=== PATIENT | female | born 1950 | race Caucasian/White ===

== ENCOUNTER → 2016-07-14 | Outpatient (CLI) | payer MEDICARE ==
--- NOTE | 2016-07-14 11:06 | MM ---
Reason for exam: history of breast cancer, conservation therapy. Last mammogram was performed 8 months ago. History: Patient is postmenopausal, has history of high-risk lesion on a previous biopsy at age 65, has history of other cancer at age 64, and has history of breast cancer at age 47. Family history of breast cancer in sister at age 56 and breast cancer in maternal aunt at age 60. High risk MG pre op needle loc LT of the left breast, January 07, 2016. Benign US biopsy breast VAD LT of the left breast, November 25, 2015. Radiation therapy of the right breast, April 2015. Malignant MG pre op needle loc RT of the right breast, February 27, 2015. Malignant US breast needle core RT of the right breast, December 17, 2014. Lumpectomy of the right breast, 2014. Lumpectomy of the left breast. Taking other hormone for 5 months. Physical Findings: Nurse did not find any significant physical abnormalities on exam. MG 3D Diag Mammo W/Cad BEATA Bilateral CC and MLO view(s) were taken. Prior study comparison: November 25, 2015, left breast MG diagnostic mammo LT wo CAD. November 09, 2015, bilateral MG 3d diag mammo w/cad BEATA. The breast tissue is heterogeneously dense. This may lower the sensitivity of mammography. No suspicious calcifications are seen. There is no discrete abnormality. No significant new findings when compared with previous films. These results were verbally communicated with the patient and result sheet given to the patient on 07/14/16. ASSESSMENT: Incomplete: need additional imaging evaluation, BI-RAD 0 RECOMMENDATION: Ultrasound of the left breast.
--- NOTE | 2016-07-14 11:07 | USB ---
Reason for exam: additional evaluation requested from abnormal screening. History: Patient is postmenopausal, has history of high-risk lesion on a previous biopsy at age 65, has history of other cancer at age 64, and has history of breast cancer at age 47. Family history of breast cancer in sister at age 56 and breast cancer in maternal aunt at age 60. High risk MG pre op needle loc LT of the left breast, January 07, 2016. Benign US biopsy breast VAD LT of the left breast, November 25, 2015. Radiation therapy of the right breast, April 2015. Malignant MG pre op needle loc RT of the right breast, February 27, 2015. Malignant US breast needle core RT of the right breast, December 17, 2014. Lumpectomy of the right breast, 2014. Lumpectomy of the left breast. Taking other hormone for 5 months. US Breast LT Left breast ultrasound includes all four quadrants, the retroareolar region and axilla. Finding demonstrates a 0.9 x 1.0 x 0.6cm oval, cluster, cystic lesion with dilated duct at 1 o'clock. These results were verbally communicated with the patient and result sheet given to the patient on 07/14/16. ASSESSMENT: Benign, BI-RAD 2 RECOMMENDATION: Follow-up diagnostic mammogram of both breasts in 1 year.
== END | disposition home or self-care (01) ==
LOC: RADMAMWWP 09:07
PROVIDERS: ATTEND Surgery
DX: R92.8 Other abnormal and inconclusive findings on diagnostic imaging of breast (principal)
CPT/HCPCS: 76641; G0204; G0279

== ENCOUNTER → 2017-06-14 | Outpatient (CLI) | payer MEDICARE ==
--- NOTE | 2017-06-14 13:16 | BD ---
EXAMINATION TYPE: MG DEXA axial skeleton. DATE OF EXAM: 06/14/2017 COMPARISON: NONE CLINICAL HISTORY: Height: 5 FT 2 IN Weight: 167 FRAX RISK QUESTIONS: Alcohol (3 or more units per day): NO Family History (Parent hip fracture): NO Glucocorticoids (More than 3mos): NO (Ex: prednisone, prednisolone, methylprednisolone, dexamethasone, and hydrocortisone). History of Fracture in Adulthood: NO Secondary Osteoporosis: 1. Type 1 Diabetes: NO 2. Hyperthyroidism: NO 3. Menopause before 45: YES 4. Malnutrition: NO 5. Chronic liver disease: NO Rheumatoid Arthritis: NO Current Tobacco Use: NO RISK FACTORS HISTORY OF: Active: YES Postmenopausal woman: PART HYST AGE 33 MEDICATIONS: Additional Medications: ZOLOFT, MIGRAINE MEDS, IMMATREX, ESTROGEN SONIDO, LIPITOR, Additional History: EXAM MEASUREMENTS: Bone mineral densitometry was performed using the [employer] System. Bone mineral density as measured about the Lumbar spine is: ----- L1-L4(G/cm2): 1.043 T Score Values are as follows: ----- L2: -1.5 ----- L3: -1.0 ----- L4: -0.6 ----- L1-L4: -1.1 Bone mineral density has: DECREASED -7.1 % since study of: 2015 Bone mineral density about the R hip (g/cm2): 0.843 Bone mineral density about the L hip (g/cm2): 0.827 T Score values are as follows: -----R Neck: -1.4 -----L Neck: -1.5 -----R Total: -0.2 -----L Total: -0.2 Bone mineral density has: DECREASED -5.3 % since study of: 2016 IMPRESSION: Osteopenia (T Score between -2.5 and -1). There is slightly increased risk of fracture and the patient may be considered for treatment. Re-Screen 2-5 years. NOTE: T-SCORE=SD OF THE YOUNG ADULT MEAN.
== END | disposition home or self-care (01) ==
LOC: RADBDWWP 09:43
PROVIDERS: ATTEND Internal Medicine Hematology & Oncology
DX: C50.411 Malignant neoplasm of upper-outer quadrant of right female breast (principal); M85.80 Other specified disorders of bone density and structure, unspecified site; N95.1 Menopausal and female climacteric states; Z79.890 Hormone replacement therapy
CPT/HCPCS: 77080

== ENCOUNTER → 2018-01-01 | Outpatient (CLI) | payer MEDICARE ==
--- NOTE | 2018-01-01 09:39 | MM ---
Reason for exam: additional evaluation requested from prior study. Last mammogram was performed 1 year ago. History: Patient has history of high-risk lesion on a previous biopsy at age 65, has history of other cancer at age 64, and has history of breast cancer at age 47. Family history of breast cancer in sister at age 56 and breast cancer in maternal aunt at age 60. High risk MG pre op needle loc LT of the left breast, January 07, 2016. Benign US biopsy breast VAD LT of the left breast, November 25, 2015. Radiation therapy of the right breast, April 2015. Malignant MG pre op needle loc RT of the right breast, February 27, 2015. Malignant US breast needle core RT of the right breast, December 17, 2014. Lumpectomy of the right breast, 2014. Lumpectomy of the left breast. Took hormonal contraceptives beginning at age 20. Taking antineoplastic beginning at age 65. Physical Findings: Nurse did not find any significant physical abnormalities on exam. MG 3D Diag Mammo W/Cad BEATA Bilateral CC and MLO view(s) were taken. Prior study comparison: December 30, 2016, bilateral MG 3d diag mammo w/cad BEATA. July 14, 2016, bilateral MG 3d diag mammo w/cad BEATA. The breast tissue is heterogeneously dense. This may lower the sensitivity of mammography. Stable benign calcifications. There is no discrete abnormality. Stable post lumpectomy changes right breast. No significant new findings when compared with previous films. These results were verbally communicated with the patient and result sheet given to the patient on 01/01/18. ASSESSMENT: Benign, BI-RAD 2 RECOMMENDATION: Follow-up diagnostic mammogram of both breasts in 1 year.
== END ==
LOC: RADMAMWWP 08:18
PROVIDERS: ATTEND Internal Medicine Hematology & Oncology
DX: Z08 Encounter for follow-up examination after completed treatment for malignant neoplasm (principal); Z85.3 Personal history of malignant neoplasm of breast
CPT/HCPCS: 77066; G0279; 77062

== ENCOUNTER → 2019-01-02 | Outpatient (CLI) | payer MEDICARE ==
--- NOTE | 2019-01-02 08:09 | MM ---
Reason for exam: additional evaluation requested from prior study. Last mammogram was performed 1 year ago. History: Patient has history of high-risk lesion on a previous biopsy at age 65, has history of other cancer at age 64, and has history of breast cancer at age 47. Family history of breast cancer in sister at age 56 and breast cancer in maternal aunt at age 60. High risk MG pre op needle loc LT of the left breast, January 07, 2016. Benign US biopsy breast VAD LT of the left breast, November 25, 2015. Radiation therapy of the right breast, April 2015. Malignant MG pre op needle loc RT of the right breast, February 27, 2015. Malignant US breast needle core RT of the right breast, December 17, 2014. Lumpectomy of the right breast, 2014. Lumpectomy of the left breast. Took hormonal contraceptives beginning at age 20. Taking antineoplastic beginning at age 65. Physical Findings: Nurse did not find any significant physical abnormalities on exam. MG 3D Diag Mammo W/Cad BEATA Bilateral CC and MLO view(s) were taken. Prior study comparison: January 01, 2018, bilateral MG 3d diag mammo w/cad BEATA. December 30, 2016, bilateral MG 3d diag mammo w/cad BEATA. There are scattered fibroglandular densities. Post surgical changes in the right breast. No significant new findings when compared with previous films. These results were verbally communicated with the patient and result sheet given to the patient on 01/02/19. ASSESSMENT: Benign, BI-RAD 2 RECOMMENDATION: Follow-up diagnostic mammogram of both breasts in 1 year.
== END | disposition home or self-care (01) ==
LOC: RADMAMWWP 07:02
PROVIDERS: ATTEND Internal Medicine Hematology & Oncology
DX: Z08 Encounter for follow-up examination after completed treatment for malignant neoplasm (principal); Z85.3 Personal history of malignant neoplasm of breast
CPT/HCPCS: 77066; G0279; 77062

== ENCOUNTER → 2019-10-07 | Outpatient (CLI) | payer MEDICARE ==
--- NOTE | 2019-10-07 14:01 | BD ---
EXAMINATION TYPE: Axial Bone Density DATE OF EXAM: 10/07/2019 COMPARISON: 06/14/2017 CLINICAL HISTORY: Height: 62 IN Weight: 164 LBS FRAX RISK QUESTIONS: Secondary Osteoporosis: 3. Menopause before 45: YES PARTIAL HYST AGE 33 RISK FACTORS HISTORY OF: Active: YES Postmenopausal woman: PARTIAL HYST AGE 33 MEDICATIONS: Additional Medications: CALCIUM, VIT D, LOW DOSE ASPIRIN, B12, AREDS 2, CETRIZINE, FLAX SEED OIL, PRO PRANOLOL, ANASTROZOLE,FENOFIBRATE Additional History: BREAST CANCER WITH RADIATION EXAM MEASUREMENTS: Bone mineral densitometry was performed using the [employer] System. Bone mineral density as measured about the Lumbar spine is: ----- L1-L4(G/cm2): 0.966 T Score Values are as follows: ----- L2: -2.0 ----- L3: -2.1 ----- L4: -1.3 ----- L1-L4: -1.8 Bone mineral density has: Decreased -8.7% since study of: 06/14/2017 Bone mineral density about the R hip (g/cm2): 0.797 Bone mineral density about the L hip (g/cm2): 0.792 T Score values are as follows: -----R Neck: -1.7 -----L Neck: -1.8 -----R Total: -0.3 -----L Total: -0.6 Bone mineral density has: Decreased -3.0% since study of: 06/14/2017 IMPRESSION: Osteopenia (T Score between -2.5 and -1). There is slightly increased risk of fracture and the patient may be considered for treatment. Re-Screen 2-5 years. NOTE: T-SCORE=SD OF THE YOUNG ADULT MEAN.
== END | disposition home or self-care (01) ==
LOC: RADBDWWP 07:16
PROVIDERS: ATTEND Internal Medicine Hematology & Oncology
DX: M85.89 Other specified disorders of bone density and structure, multiple sites (principal); C50.411 Malignant neoplasm of upper-outer quadrant of right female breast; Z79.890 Hormone replacement therapy; N95.1 Menopausal and female climacteric states; Z91.048 Other nonmedicinal substance allergy status
CPT/HCPCS: 77080

== ENCOUNTER → 2019-10-21 | Outpatient (CLI) | payer MEDICARE ==
[~2019-10-21] MED LIST: DENOSUMAB 60 MG/ML 1 ML SYRINGE SQ NR
[2019-10-21 11:48] VITALS: BP 154/80; PULSE 71; RESP 16
== END | disposition home or self-care (01) ==
LOC: PROCWHC3 11:28
PROVIDERS: ATTEND Internal Medicine Hematology & Oncology
DX: M89.9 Disorder of bone, unspecified (principal); Z79.811 Long term (current) use of aromatase inhibitors; Z85.3 Personal history of malignant neoplasm of breast
CPT/HCPCS: 96372; J0897

== ENCOUNTER → 2019-11-26 | Outpatient (CLI) | payer MEDICARE ==
--- NOTE | 2019-11-26 10:35 | XR ---
EXAMINATION TYPE: XR tibia fibula 2 views RT, XR ankle complete 3 views RT DATE OF EXAM: 11/26/2019 COMPARISON: NONE HISTORY: 69-year-old female with fall and pain FINDINGS: Tibia/fibula: Mild generalized soft tissue swelling mid and lower leg. Fusiform thickening especially along the mid dle third Achilles tendon. No acute fracture of the proximal to mid tibia or fibula. Ankle: Small posterior and plantar heel spurs. Fusiform thickening along the middle third Achilles tendon. O s peroneum. Corticated bone density below the medial malleolus compatible with sequela of old injury. Lateral malleolus soft tissue swelling. Ankle mortise remains congruent. No acute fracture, subluxat ion, dislocation seen. IMPRESSION: 1. Tibia/fibula: Mild soft tissue swelling mid and distal leg. No acute osseous anomaly seen. 2. Ankle: Lateral malleolar soft tissue swelling. No acute osseous abnormality seen. Corticated bone fragment below the medial malleolus compatible with sequela of remote injury. Thickening of the Achil les tendon suggesting Achilles tendinopathy. If indicated, MRI can provide more detailed assessment o f the Achilles tendon.
== END | disposition home or self-care (01) ==
LOC: RADXRMAIN 09:28
PROVIDERS: ATTEND Nurse Practitioner Family
DX: M79.89 Other specified soft tissue disorders (principal); M67.873 Other specified disorders of tendon, right ankle and foot

== ENCOUNTER → 2020-01-06 | Outpatient (CLI) | payer MEDICARE ==
--- NOTE | 2020-01-07 11:48 | MM ---
Reason for exam: additional evaluation requested from prior study. Last mammogram was performed 1 year ago. History: Patient has history of breast cancer at age 65 and has history of high-risk lesion on a previous biopsy at age 65. Family history of breast cancer in sister at age 56 and breast cancer in maternal aunt at age 60. High risk MG pre op needle loc LT of the left breast, January 07, 2016. Benign US biopsy breast VAD LT of the left breast, November 25, 2015. Radiation therapy of the right breast, April 2015. Malignant MG pre op needle loc RT of the right breast, February 27, 2015. Malignant US breast needle core RT of the right breast, December 17, 2014. Lumpectomy of the right breast, 2014. Lumpectomy of the left breast. Took hormonal contraceptives beginning at age 20. Taking antineoplastic beginning at age 65. Physical Findings: Nurse did not find any significant physical abnormalities on exam. MG 3D Diag Mammo W/Cad BEATA Bilateral CC and MLO view(s) were taken. Prior study comparison: January 02, 2019, bilateral MG 3d diag mammo w/cad BEATA. January 01, 2018, bilateral MG 3d diag mammo w/cad BEATA. Post surgical change right upper outer quadrant with clips. Benign appearing bilateral calcifications. No significant new findings when compared with previous films. These results were verbally communicated with the patient and result sheet given to the patient on 01/06/20. ASSESSMENT: Benign, BI-RAD 2 RECOMMENDATION: Routine screening mammogram of both breasts in 1 year.
== END | disposition home or self-care (01) ==
LOC: RADMAMWWP 13:09
PROVIDERS: ATTEND Internal Medicine Hematology & Oncology
DX: Z08 Encounter for follow-up examination after completed treatment for malignant neoplasm (principal); Z85.3 Personal history of malignant neoplasm of breast
CPT/HCPCS: 77066; G0279; 77062

== ENCOUNTER → 2020-04-22 | Outpatient (CLI) | payer MEDICARE ==
[~2020-04-22] MED LIST changes: -DENOSUMAB 60 MG/ML 1 ML SYRINGE SQ NR; +DENOSUMAB 60 MG/ML 1 ML SYRINGE SQ ONE
[2020-04-22 10:26] VITALS: BP 161/71; PULSE 70; RESP 16; TEMP 98.4
== END | disposition home or self-care (01) ==
LOC: PROCWHC3 10:06
PROVIDERS: ATTEND Internal Medicine Hematology & Oncology
DX: M89.9 Disorder of bone, unspecified (principal); Z85.3 Personal history of malignant neoplasm of breast; Z79.811 Long term (current) use of aromatase inhibitors
CPT/HCPCS: 96372; J0897

== ENCOUNTER → 2020-10-21 | Outpatient (CLI) | payer MEDICARE ==
[~2020-10-21] MED LIST changes: +DENOSUMAB 60 MG/ML 1 ML SYRINGE SQ NR; -DENOSUMAB 60 MG/ML 1 ML SYRINGE SQ ONE
[2020-10-21 08:26] VITALS: BP 162/91; PULSE 67; RESP 16; TEMP 98.3
== END | disposition home or self-care (01) ==
LOC: PROCWHC3 07:43
PROVIDERS: ATTEND Internal Medicine Hematology & Oncology
DX: Z51.81 Encounter for therapeutic drug level monitoring (principal); Z79.811 Long term (current) use of aromatase inhibitors
CPT/HCPCS: 96372; J0897

== ENCOUNTER → 2021-01-07 | Outpatient (CLI) | payer MEDICARE ==
--- NOTE | 2021-01-11 09:52 | MM ---
Reason for exam: screening (asymptomatic). Last mammogram was performed 1 year ago. History: Patient has history of breast cancer at age 65 and has history of high-risk lesion on a previous biopsy at age 65. Family history of breast cancer in sister at age 56 and breast cancer in maternal aunt at age 60. High risk MG pre op needle loc LT of the left breast, January 07, 2016. Benign US biopsy breast VAD LT of the left breast, November 25, 2015. Radiation therapy of the right breast, April 2015. Malignant MG pre op needle loc RT of the right breast, February 27, 2015. Malignant US breast needle core RT of the right breast, December 17, 2014. Lumpectomy of the right breast, 2014. Lumpectomy of the left breast. Took hormonal contraceptives beginning at age 20. Taking antineoplastic beginning at age 65. Physical Findings: A clinical breast exam by your physician is recommended on an annual basis and results should be correlated with mammographic findings. MG 3D Screening Mammo W/Cad Bilateral CC and MLO view(s) were taken. Prior study comparison: January 06, 2020, bilateral MG 3d diag mammo w/cad BEATA. January 02, 2019, bilateral MG 3d diag mammo w/cad BEATA. The breast tissue is heterogeneously dense. This may lower the sensitivity of mammography. Post surgical changes right breast. No significant changes when compared with prior studies. ASSESSMENT: Benign, BI-RAD 2 RECOMMENDATION: Routine screening mammogram of both breasts in 1 year.
== END | disposition home or self-care (01) ==
LOC: RADMAMWWP 12:54
PROVIDERS: ATTEND Internal Medicine Hematology & Oncology
DX: Z12.31 Encounter for screening mammogram for malignant neoplasm of breast (principal)
CPT/HCPCS: 77063; 77067

== ENCOUNTER → 2021-06-07 | Outpatient (CLI) | payer MEDICARE ==
[2021-06-07 07:42] VITALS: BP 136/71; PULSE 78; RESP 18; TEMP 97.6
== END | disposition home or self-care (01) ==
LOC: PROCWHC3 07:34
PROVIDERS: ATTEND Family Medicine
DX: M81.0 Age-related osteoporosis without current pathological fracture (principal)
CPT/HCPCS: 96372; J0897

== ENCOUNTER → 2021-10-11 | Outpatient (CLI) | payer MEDICARE ==
--- NOTE | 2021-10-11 18:33 | BD ---
EXAMINATION TYPE: Axial Bone Density DATE OF EXAM: 10/11/2021 COMPARISON: 10.07.2019...UNAVAILABLE...06.14.2017 IN DATABASE CLINICAL HISTORY: 71 years year old Female. ICD-10 CODE: M85.9 DISORDER OF BONE DENSITY AND STRUCTUR E, UNSP Height: 62 Weight: 164 FRAX RISK QUESTIONS: Family History (Parent hip fracture): YES Glucocorticoids (More than 3mos): NOT FOR 3 MOS CONTINUOUSLY, (Ex: prednisone, prednisolone, methylprednisolone, dexamethasone, and hydrocortisone). Secondary Osteoporosis: YES 3. Menopause before 45: YES, 33 RISK FACTORS HISTORY OF: Family History of Osteoporosis: YES, GRANDMOTHER, SPINAL FXS Postmenopausal woman: YES, AT 33 YRS OLD, Hyperparathyroidism: NO Adrenal Insufficiency: NO MEDICATIONS: Prednisone or other steroids: INHALER, HAS NOT USED IN A MONTH, AND ORAL STEROIDS, FOR MONTH OF RY Osteoporosis Medications: PROLIA, EVERY 6 MONS, FOR 3 YRS Additional Medications: ANASTROZOLE, CALCIUM, BIT D, B12, ASPIRIN, PROPANOLOL, CETRIZINE, AREDS 2, H X OF RADIATION, FARXIGA, METFORMIN, INTHE PAST,BP MEDS, STATIN FOR CHOLESTEROL, ZETIA FOR CHOLESTER OL, FLAX SEED OIL Additional History: HX OF BREAST CANCER WITH RADIATION...2016, LT BREAST, DIABETIC, HYPERTENSION, CHO LESTEROL, STEROIDS FOR ILLNESS, EXAM MEASUREMENTS: Bone mineral densitometry was performed using the [employer] System. Bone mineral density as measured about the Lumbar spine is: ----- L1-L4(G/cm2): 1.105 T Score Values are as follows: ----- L1: -0.6 ----- L2: -1.0 ----- L3: -0.2 ----- L4: -0.9 ----- L1-L4: -0.6 Bone mineral density has: Increased 5.9% since study of: 06.14.2017 Bone mineral density about the R hip (g/cm2): 1.009 Bone mineral density about the L hip (g/cm2): 0.989 T Score values are as follows: -----R Neck: -1.4 -----L Neck: -1.5 -----R Total: 0.0 -----L Total: -0.1 Bone mineral density has: Increased 1.7% since study of: 06.14.2017 FRAX%s: The graph provided illustrates a 10.3% chance for a major osteoporotic fx and a 1.7% chance f or the hips probability for fx in 10 years time. IMPRESSION: Osteopenia (T Score between -2.5 and -1). There is slightly increased risk of fracture and the patient may be considered for treatment. Re-Screen 2-5 years. NOTE: T-SCORE=SD OF THE YOUNG ADULT MEAN.
== END | disposition home or self-care (01) ==
LOC: RADBDWWP 09:39
PROVIDERS: ATTEND Internal Medicine Hematology & Oncology
DX: C50.411 Malignant neoplasm of upper-outer quadrant of right female breast (principal); M85.9 Disorder of bone density and structure, unspecified
CPT/HCPCS: 77080

== ENCOUNTER → 2021-12-27 | Outpatient (CLI) | payer MEDICARE ==
[2021-12-27 12:22] VITALS: BP 124/75; PULSE 80; RESP 16; TEMP 97.9
== END | disposition home or self-care (01) ==
LOC: PROCWHC3 11:59
PROVIDERS: ATTEND Family Medicine
DX: M81.0 Age-related osteoporosis without current pathological fracture (principal)
CPT/HCPCS: 96372; J0897

== ENCOUNTER → 2022-01-10 | Outpatient (CLI) | payer MEDICARE ==
--- NOTE | 2022-01-11 17:18 | MM ---
Reason for Exam: Screening (asymptomatic). Last screening mammogram was performed 12 month(s) ago. Patient History: Menarche at age 12. First Full-Term at age 17. Hysterectomy at age 33. Breast cancer, right, age 65. Previous chest radiation therapy at age 65. Hormonal Contraceptives, starting at age 20. Lumpectomy on the Left side. 2014, Lumpectomy on the Right side. 01/07/2016, High risk Core Biopsy on the left side. 11/25/2015, Benign Core Biopsy on the left side. 02/27/2015, Malignant Core Biopsy on the right side. 12/17/2014, Malignant Core Biopsy on the right side. 04/2015, Radiation Therapy on the right side. Maternal aunt had breast cancer, age 60. Sister had breast cancer, age 56. Sister had breast cancer, age 60. Prior Study Comparison: 01/02/2019 Bilateral Diagnostic Mammogram, [facility]. 01/06/2020 Bilateral Diagnostic Mammogram, [facility]. 01/07/2021 Bilateral Screening Mammogram, [facility]. Tissue Density: There are scattered fibroglandular densities. Findings: Analyzed By CAD. Postsurgical biopsy changes are within the right breast. Multiple scattered round benign-appearing calcifications are present bilaterally. No significant interval change is evident. No suspicious groups of microcalcifications, spiculated or lobular masses, architectural distortion or other secondary signs of malignancy are mammographically apparent. Overall Assessment: Benign, BI-RAD 2 Management: Screening Mammogram of both breasts in 1 year. A negative mammogram report should not preclude additional follow up of suspicious palpable abnormalities. Patient should continue monthly self breast exam. A clinical breast exam by your physician is recommended on an annual basis and results should be correlated with mammographic findings. Electronically signed and approved by: Avi Sidhu D.O. Radiologis
== END | disposition home or self-care (01) ==
LOC: RADMAMWWP 08:23
PROVIDERS: ATTEND Internal Medicine Hematology & Oncology
DX: Z12.31 Encounter for screening mammogram for malignant neoplasm of breast (principal); Z80.3 Family history of malignant neoplasm of breast
CPT/HCPCS: 77063; 77067

== ENCOUNTER → 2022-07-28 | Outpatient (CLI) | payer MEDICARE ==
[2022-07-28 07:57] VITALS: BP 118/71; PULSE 73; RESP 16; TEMP 97.5
== END ==
LOC: PROCWHC3 07:48
PROVIDERS: ATTEND Family Medicine
DX: M81.0 Age-related osteoporosis without current pathological fracture (principal)
CPT/HCPCS: 96372; J0897

== ENCOUNTER → 2023-01-11 | Outpatient (CLI) | payer MEDICARE ==
--- NOTE | 2023-01-11 13:42 | MM ---
Reason for Exam: Hx of breast cancer, conservation therapy. Last mammogram was performed 1 year(s) and 1 month(s) ago. Patient History: Menarche at age 12. First Full-Term at age 17. Hysterectomy at age 33. Breast cancer, right, age 65. Previous chest radiation therapy at age 65. Hormonal Contraceptives, starting at age 20. Lumpectomy on the Left side. 2014, Lumpectomy on the Right side. 01/07/2016, High risk Core Biopsy on the left side. 11/25/2015, Benign Core Biopsy on the left side. 02/27/2015, Malignant Core Biopsy on the right side. 12/17/2014, Malignant Core Biopsy on the right side. 04/2015, Radiation Therapy on the right side. Maternal aunt had breast cancer, age 60. Sister had breast cancer, age 56. Sister had breast cancer, age 60. Prior Study Comparison: 12/30/2016 Bilateral Diagnostic Mammogram, [facility]. 01/01/2018 Bilateral Diagnostic Mammogram, [facility]. 01/02/2019 Bilateral Diagnostic Mammogram, [facility]. 01/06/2020 Bilateral Diagnostic Mammogram, [facility] 01/07/2021 Bilateral Screening Mammogram, [facility]. 01/10/2022 Bilateral MG 3D screening mammo w/cad, [facility]. Tissue Density: There are scattered fibroglandular densities. Findings: Analyzed By CAD. Postsurgical biopsy changes within the right breast. Benign calcifications bilaterally. No new suspicious mass within the left breast. Asymmetry demonstrated within the inner right breast only in the CC view at posterior depth. No suspicious group of microcalcifications within either breast. Overall Assessment: Incomplete: need additional imaging evaluation, BI-RAD 0 Management: Diagnostic Mammogram of the right breast. A clinical breast exam by your physician is recommended on an annual basis and results should be correlated with mammographic findings. [facility] will attempt to contact patient to return for supplemental views and ultrasound if indicated. Electronically signed and approved by: Terrell Landa D.O.
== END | disposition home or self-care (01) ==
LOC: RADMAMWWP 10:42
PROVIDERS: ATTEND Internal Medicine Hematology & Oncology
DX: Z12.31 Encounter for screening mammogram for malignant neoplasm of breast (principal); Z80.3 Family history of malignant neoplasm of breast; Z85.3 Personal history of malignant neoplasm of breast
CPT/HCPCS: 77063; 77067

== ENCOUNTER → 2023-01-24 | Outpatient (CLI) | payer MEDICARE ==
--- NOTE | 2023-01-24 13:15 | MM ---
Reason for Exam: Additional evaluation requested from abnormal screening. Last screening mammogram was performed less than 1 month ago. Patient History: Menarche at age 12. First Full-Term at age 17. Hysterectomy at age 33. Breast cancer, right, age 65. Previous chest radiation therapy at age 65. Hormonal Contraceptives, starting at age 20. Lumpectomy on the Left side. 2014, Lumpectomy on the Right side. 01/07/2016, High risk Core Biopsy on the left side. 11/25/2015, Benign Core Biopsy on the left side. 02/27/2015, Malignant Core Biopsy on the right side. 12/17/2014, Malignant Core Biopsy on the right side. 04/2015, Radiation Therapy on the right side. Maternal aunt had breast cancer, age 60. Sister had breast cancer, age 56. Sister had breast cancer, age 60. Tissue Density: Right: The breast tissue is heterogeneously dense. This may lower the sensitivity of mammography. Findings: Analyzed By CAD. Postsurgical biopsy changes within the right breast. Benign scattered calcifications are demonstrated. Asymmetry demonstrated within the inner right breast only in the CC view at posterior depth does not persist with compression. Overall Assessment: Benign, BI-RAD 2 Management: Screening Mammogram of both breasts in 1 year. A clinical breast exam by your physician is recommended on an annual basis and results should be correlated with mammographic findings. This exam should not preclude additional follow-up of suspicious palpable abnormalities. Results were given to the patient verbally at the time of exam. Electronically signed and approved by: Terrell Landa D.O.
== END | disposition home or self-care (01) ==
LOC: RADMAMWWP 12:48
PROVIDERS: ATTEND Internal Medicine Hematology & Oncology
DX: R92.332 Mammographic heterogeneous density, left breast (principal); R92.8 Other abnormal and inconclusive findings on diagnostic imaging of breast; Z80.3 Family history of malignant neoplasm of breast
CPT/HCPCS: 77065; G0279; 77061

== ENCOUNTER → 2023-01-30 | Outpatient (CLI) | payer MEDICARE ==
[2023-01-30 13:30] VITALS: BP 139/78; PULSE 76; RESP 16; TEMP 97.6
== END ==
LOC: PROCWHC3 12:41
PROVIDERS: ATTEND Family Medicine
DX: M81.0 Age-related osteoporosis without current pathological fracture (principal)
CPT/HCPCS: 96372; J0897

== ENCOUNTER → 2023-11-09 | Outpatient (CLI) | payer MEDICARE ==
[2023-11-09] MEDS: DENOSUMAB 60 MG/ML 1 ML SYRINGE SQ ONE (14:22)
[2023-11-09 14:25] VITALS: BP 164/74; PULSE 79; RESP 16; TEMP 97.7
== END ==
LOC: PROCWHC3 14:16
PROVIDERS: ATTEND Family Medicine
DX: M85.80 Other specified disorders of bone density and structure, unspecified site (principal)
CPT/HCPCS: 96372

== ENCOUNTER → 2024-02-06 | Outpatient (CLI) | payer MEDICARE ==
--- NOTE | 2024-02-06 17:37 | BD ---
EXAMINATION TYPE: Axial Bone Density DATE OF EXAM: 02/06/2024 CLINICAL HISTORY: 73 years old Female. ICD-10 CODE: M810 OSTEOPOROSIS , Additional History: Height: 62 Weight: 176.0 FRAX RISK QUESTIONS: Alcohol (3 or more units per day): no Family History (Parent hip fracture): yes Glucocorticoids (More than 3mos): no (Ex: prednisone, prednisolone, methylprednisolone, dexamethasone, and hydrocortisone). History of Fracture in Adulthood: no Secondary Osteoporosis: 1. Type 1 Diabetes: no 2. Hyperthyroidism: no 3. Menopause before 45: yes 4. Malnutrition: no 5. Chronic liver disease: no Rheumatoid Arthritis: no Current Tobacco Use: no RISK FACTORS HISTORY OF: Surgery to Spine/Hip(right/left)/Wrist (right/left): no MEDICATIONS: Osteoporosis Medications: Prolia How Long: pt unsure EXAM MEASUREMENTS: Bone mineral densitometry was performed using the [employer] System. Bone mineral density as measured about the Lumbar spine is: ----- L1-L4(G/cm2): 1.100 T Score Values are as follows: ----- L1: -1.5 ----- L2: -0.8 ----- L3: -0.1 ----- L4: -0.4 ----- L1-L4: -0.7 Z Score Values are as follows: ----- L1: -0.3 ----- L2: 0.5 ----- L3: 1.1 ----- L4: 0.8 ----- L1-L4: 0.6 Bone mineral density has: decreased -0.5 % since study of: 10.11.2021 Bone mineral density about the R hip (g/cm2): 1.023 Bone mineral density about the L hip (g/cm2): 1.013 T Score values are as follows: -----R Neck: -1.3 -----L Neck: -1.5 -----R Total: 0.1 -----L Total: 0.0 Z Score values are as follows: -----R Neck: 0.2 -----L Neck: 0.1 -----R Total: 1.5 -----L Total: 1.4 Bone mineral density has: increased 1.9 % since study of: 8.1.2021 FRAX%s: The graph provided illustrates a 10.4% chance for a major osteoporotic fx and a 1.9% chance f or the hips probability for fx in 10 years time. IMPRESSION: Osteopenia (T Score between -2.5 and -1). There is slightly increased risk of fracture and the patient may be considered for treatment. Re-Screen 2-5 years. NOTE: T-SCORE=SD OF THE YOUNG ADULT MEAN. [facility], , 02/06/2024 5:34 PM
== END | disposition home or self-care (01) ==
LOC: RADBDWWP 15:16
PROVIDERS: ATTEND Internal Medicine Hematology & Oncology
DX: M81.0 Age-related osteoporosis without current pathological fracture (principal); M85.89 Other specified disorders of bone density and structure, multiple sites; Z80.3 Family history of malignant neoplasm of breast; Z71.89 Other specified counseling; M85.9 Disorder of bone density and structure, unspecified
CPT/HCPCS: 77080

== ENCOUNTER → 2024-02-23 | Outpatient (CLI) | payer MEDICARE ==
--- NOTE | 2024-02-26 10:40 | MM ---
Reason for Exam: Screening (asymptomatic). Last mammogram was performed 1 year(s) and 1 month(s) ago. Patient History: Menarche at age 12. First Full-Term at age 17. Hysterectomy at age 33. Breast cancer, right, age 65. Previous chest radiation therapy at age 65. Hormonal Contraceptives, starting at age 20. Lumpectomy on the Left side. 2014, Lumpectomy on the Right side. 01/07/2016, High risk Core Biopsy on the left side. 11/25/2015, Benign Core Biopsy on the left side. 02/27/2015, Malignant Core Biopsy on the right side. 12/17/2014, Malignant Core Biopsy on the right side. 04/2015, Radiation Therapy on the right side. Maternal aunt had breast cancer, age 60. Sister had breast cancer, age 56. Sister had breast cancer, age 60. Prior Study Comparison: 01/10/2022 Bilateral MG 3D screening mammo w/cad, [facility]ED WITH [facility]. 01/11/2023 Bilateral MG 3D screening mammo w/cad, [facility]ED WITH [facility]. 01/24/2023 Right MG 3D work up w/cad RT, [facility]ED WITH [facility]. Tissue Density: There are scattered areas of fibroglandular density. Findings: Analyzed By CAD. Right breast surgical clips. Right breast: There is no suspicious group of microcalcifications or new suspicious mass. Benign-appearing calcifications right breast. Left breast: There is no suspicious group of microcalcifications or new suspicious mass. Benign-appearing calcifications left breast. Overall Assessment: Benign, BI-RAD 2 Management: Screening Mammogram of both breasts in [address] [facility] will attempt to contact patient to return for supplemental views and ultrasound if indicated. Patient should continue monthly self-breast exams. A clinical breast exam by your physician is recommended on an annual basis. This exam should not preclude additional follow-up of suspicious palpable abnormalities. Note on Aniyah scores and lifetime risk: 1. A Aniyah score greater than 3% is considered moderate risk. If this is the case, consider specialist referral to assess eligibility for a risk reducing agent. 2. If overall lifetime risk for the development of breast cancer is 20% or higher, the patient may qualify for future screening with alternating mammogram and breast MRI. [facility], , 02/26/2024 10:36 AM. Electronically signed and approved by: Lm Carmichael DO
== END | disposition home or self-care (01) ==
LOC: RADMAMWWP 12:27
PROVIDERS: ATTEND Internal Medicine Hematology & Oncology
DX: Z12.31 Encounter for screening mammogram for malignant neoplasm of breast (principal); Z85.3 Personal history of malignant neoplasm of breast; Z80.3 Family history of malignant neoplasm of breast; R92.323 Mammographic fibroglandular density, bilateral breasts; Z98.82 Breast implant status
CPT/HCPCS: 77063; 77067

== ENCOUNTER 2024-05-21 11:37 | Outpatient (CLI) | payer MEDICARE ==
[2024-05-21] MEDS: DENOSUMAB 60 MG/ML 1 ML SYRINGE SQ NR (11:56)
[2024-05-21 11:58] VITALS: BP 187/76; PULSE 66; RESP 16; TEMP 97.6
== END 2024-05-21 13:25 | disposition home or self-care (01) ==
LOC: PROCWHC3 11:37
PROVIDERS: ATTEND Family Medicine
DX: M85.80 Other specified disorders of bone density and structure, unspecified site (principal)
CPT/HCPCS: 96372; J0897